=== PATIENT | female | born 1960 ===

== ENCOUNTER 2018-10-03 06:08 | Day surgery (SDC) | payer MEDICARE ==
[2018-10-03] VITALS (10 sets, daily range): BP systolic 141–160; BP diastolic 75–86
[~2018-10-03] VITALS: Ht 167.6 cm; Wt 77.1 kg
[~2018-10-03 06:08] MED LIST: AMLODIPINE BESYL5 MG ORAL; LISINOPRIL10 MG ORAL
[2018-10-03] MEDS ORDERED: TESTOSTERO100 MG/1 M IM (06:46)
[2018-10-03] MEDS ORDERED: ceFAZolin sod 2 GM in NS 55 ML IVPB ONE (07:00)
[2018-10-03] MEDS ORDERED: Lidocaine 1% 10mg/ml/Epi 0.005mg/ml 30ml vial INJ ONE (07:09)
[2018-10-03] MEDS ORDERED: Propofol 200mg/20ml IV ONE (07:09)
[2018-10-03] MEDS ORDERED: fentaNYL 100 mcg/2 mL IV ONE ×2 (07:09→08:53)
[2018-10-03] MEDS ORDERED: Bacitracin Oint 15gm Tube TOPIC ONE (07:09)
[2018-10-03] MEDS ORDERED: Midazolam 2mg/2ml Inj ONE (07:09)
[2018-10-03] MEDS ORDERED: Bupivacaine 0.5% Inj 30 ml vial INJ ONE (07:09)
[2018-10-03] MEDS ORDERED: Muri-Lube ONE (07:09)
[2018-10-03] MEDS ORDERED: Lidocaine 1% MPF 10mg/ml 5ml ONE ×2 (07:09→07:10)
--- NOTE | 2018-10-03 07:22 | Pre-Procedure Note/Attestation ---
Pre-Procedure Note/Attestation Complete Prior to Procedure Planned Procedure: bilateral Indications for Procedure Pre-Operative Diagnosis: gender identity disorder Attestation I attest that I discussed the nature of the procedure; its benefits; risks and complications; and alternatives (and the risks and benefits of such alternatives ), prior to the procedure, with the patient (or the patient's legal digital sales representative). I attest that, if there was a reasonable possibility of needing a blood transfusion, the patient (or the patient's legal digital sales representative) was given the [facility] standardized written summary, pursuant to the [place] Blood Safety Act ([place] Health and Safety Code # 1645, as amended). I attest that I re-evaluated the patient just prior to the surgery and that there has been no change in the patient's H&P, except as documented below: Silvestre Crabtree MD Oct 03, 2018 07:22
--- NOTE | 2018-10-03 07:26 | Anethesia Preoperative Eval ---
Anesthesia Pre-op PMH/ROS General Date of Evaluation: Oct 03, 2018 Time of Evaluation: 07:33 Anesthesiologist: Tiffani Moreira CRNA ASA Score: ASA 2 Mallampati Score Class I : Soft palate, uvula, fauces, pillars visible Class II: Soft palate, uvula, fauces visible Class III: Soft palate, base of uvula visible Class IV: Only hard plate visible Mallampati Classification: Class III Surgeon: Leyda Diagnosis: Gender Identity Disorder Surgical Procedure: (B) mastectomy with nipple graft Anesthesia History: none Family History: no anesthesia problems Allergies: Coded Allergies: No Known Allergies (Unverified , 09/30/18) Medications: see eMAR Patient NPO?: Yes NPO Date: Oct 03, 2018 NPO Time: 00:00 Past Medical History Cardiovascular: Reports: HTN; Denies: CAD, [place], valve dz, arrhythmia, other Pulmonary: Denies: asthma, COPD, LUDMILA, other Gastrointestinal/Genitourinary: Reports: other - 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 Exam Physician Exam Last Vital Signs Date Time Temp Pulse Resp B/P (MAP) Pulse Ox O2 Delivery O2 Flow Rate FiO2 10/03/18 07:00 97.7 78 20 141/81 98 Room Air Constitutional: NAD Neurologic: CN 2-12 intact Cardiovascular: RRR Respiratory: CTA Gastrointestinal: S/NT/ND Airway Exam Mallampati Score: Class III MO: full Neck: no issues TMD: 2-3 FB ROM: full Teeth: missing Dentures: lower; no upper Anesthesia Pre-op A/P Labs in chart, reviewed Risk Assessment & Plan Assessment: ASA 2, ok to proceed Plan: GETA Status Change Before Surgery: No Pre-Antibiotics Drug: Tiffani Otto CRNA Oct 03, 2018 07:26
[2018-10-03] MEDS ORDERED: LR 1000ml ONE (07:30)
[2018-10-03] MEDS ORDERED: NS Irrig 1000ml ONE (07:30)
[2018-10-03] MEDS ORDERED: Sterile Water Irrig 1000ml IRRIG ONE (07:30)
[2018-10-03] MEDS ORDERED: Succinylcholine 20mg/ml 10ml vial ONE (07:47)
[2018-10-03] MEDS ORDERED: Zemuron 50mg/5ml Inj IV ONE (07:47)
[2018-10-03] MEDS ORDERED: Dyna-Hex 2% Top Sol 2oz TOPIC ONE (08:01)
[2018-10-03] MEDS ORDERED: Ketorolac 30mg Inj ONE (08:24)
[2018-10-03] MEDS ORDERED: Dexamethasone 4mg/ml vial ONE (08:24)
[2018-10-03] MEDS ORDERED: Labetalol 5mg/ml 20ml vial IV ONE (08:24)
[2018-10-03] MEDS ORDERED: Neostigmine 1mg/ml 10ml Inj ONE (09:37)
[2018-10-03] MEDS ORDERED: Glycopyrrolate 0.2mg/ml 1ml Vial ONE (09:37)
--- NOTE | 2018-10-03 11:45 | Operative Note - PDOC ---
Operative Note Operative Note Date of Operation/Procedure: Oct 03, 2018 Pre-op Diagnosis: gender identity disorder Procedure: bilateral mastectomy, bilateral nipple areola reconstruction Post-op Diagnosis: same as pre-op Surgeon: Leyda Anesthesia: general Specimen: yes - 1) right breast, 2) left breast Complications: none Condition: stable Estimated Blood Loss: minimal Drains: LÁZARO - x2 Implant(s) used?: No Silvestre Crabtree MD Oct 03, 2018 11:45
--- NOTE | 2018-10-03 11:46 | Discharge Instructions ---
Discharge Instructions Discharge Instructions Follow up with: Dr. Crabtree Oct 08 Diet: regular Resume Normal Activity?: Yes Activity: ambulate For Surgical Patients Dressing Care: keep dry and clean May shower: No - sponge bathe only For Congestive Heart Failure Reminder Report to your physician any weight gain of 5 pounds or more in one week. Silvestre Crabtree MD Oct 03, 2018 11:46
[2018-10-03] MEDS ORDERED: Tylenol #3 tab (300mg/30mg) ORAL PRN (12:00)
[2018-10-03] MEDS ORDERED: HYDROmorphone 1mg/ml Carpuject SUBQ PRN (12:00)
[2018-10-03] MEDS ORDERED: D5 1/2NS 1,000 ML IV SCH (12:00)
[2018-10-03] MEDS ORDERED: Norco 5mg/325mg tab ORAL PRN (12:00)
--- NOTE | 2018-10-03 12:06 | Immediate Post-Op Evaluation ---
Immediate Post-Op Evalulation Immediate Post-Op Evalulation Procedure: (B) mastectomy with nipple graft Date of Evaluation: Oct 03, 2018 Time of Evaluation: 11:50 IV Fluids: LR 2500 ml Estimated Blood Loss: 100 ml Blood Pressure Systolic: 148 Blood Pressure Diastolic: 83 Pulse Rate: 89 Respiratory Rate: 16 O2 Sat by Pulse Oximetry: 100 Temperature (Fahrenheit): 97.5 Pain Score (1-10): 2 Nausea: No Vomiting: No Complications none Patient Status: awake, reacts, patent, extubated Hydration Status: adequate Drug: cefazolin 2 gm IV Given Within 1 Hr of Incision: Yes Time Given: 08:00 Tiffani Moreira CRNA Oct 03, 2018 12:06
[2018-10-03] MEDS ORDERED: Metoclopramide 10mg/2ml Inj IVP PRN (12:15)
--- NOTE | 2018-10-03 12:26 | 48 Hour Post Anesthesia Eval ---
Post Anesthesia Evaluation Procedure: (B) mastectomy with nipple graft Date of Evaluation: Oct 03, 2018 Time of Evaluation: 12:24 Blood Pressure Systolic: 154 0: 81 Pulse Rate: 75 Respiratory Rate: 14 Temperature (Fahrenheit): 97.5 O2 Sat by Pulse Oximetry: 97 Airway: patent Nausea: No Vomiting: No Pain Intensity: 2 Hydration Status: adequate Cardiopulmonary Status: stable Follow-up Care/Observations: per plastic surgery Post-Anesthesia Complications: none noted Follow-up care needed: ready to discharge Tiffani Moreira CRNA Oct 03, 2018 12:26
--- NOTE | 2018-10-04 00:42 | Operative Note - Dictated ---
DATE OF OPERATION: 10/03/2018 PREOPERATIVE DIAGNOSIS: Gender identity disorder. POSTOPERATIVE DIAGNOSIS: Gender identity disorder. PROCEDURES: 1. Bilateral mastectomy. 2. Bilateral nipple-areolar reconstruction. 3. Bilateral extended lipectomy of axilla. SURGEON: Silvestre Crabtree M.D. ANESTHESIA: General. ESTIMATED BLOOD LOSS: Minimal. SPECIMEN: 1. Right breast. 2. Left breast. DRAINS: A 15-Croatian Gaetano x2. COMPLICATIONS: None. CONDITION: To recovery room stable. INDICATION FOR PROCEDURE: This is a very pleasant 58-year-old trans-male, who desires top surgery mastectomy as part of his transition. He has the appropriate letter of recommendation from his mental health therapist and meets all WPATH criteria for top surgery. I have discussed the risks, benefits, and alternatives to the procedure with him including, but not limited to, bleeding, infection, scarring, nerve injury, asymmetry, contour deformity, hematoma, seroma, loss of nipple sensation, loss of nipple graft and need for additional surgery including revisions. I discussed the orientation of the incision and the unpredictable nature of scarring. No guarantees were made regarding the outcome. All of his questions have been answered to the best of my ability. He verbalized understanding with everything that we discussed and wishes to proceed. DESCRIPTION OF PROCEDURE: The patient was identified in the preoperative holding area and marked in the standing position. He was then brought to the operating room where he was placed in the supine position on the operating room table with his arms extended on arm boards. All bony prominences were adequately padded. Sequential compression devices were placed and intravenous antibiotics were administered. After induction of anesthesia, the patient's chest was prepped and draped in sterile fashion. Starting on the left breast first, the nipple-areolar complex was placed on manual stretch and a [place] measuring 2.5 cm in diameter was drawn out centered to the nipple. Next, the subdermal plane within these markings was infiltrated with 3 mL of 1% lidocaine with epinephrine. Next, I proceeded to make an incision on the areolar marking using a 15 blade scalpel. I then harvested a full-thickness nipple-areola graft. The graft was subsequently defatted, wrapped in wet gauze and placed on the back table. I then made inframammary fold incision using a 10 blade scalpel and dissected down to the level of the pectoralis major fascia. After this was done, I made the superior breast incision with a 10 blade scalpel and dissected down to the level of Hudson's fascia. Allis clamps were used to retract the skin and a plane of dissection was created between the subcutaneous tissue and breast parenchyma heading in a superior direction toward the level of the clavicle. Afterwards, the breast parenchyma was elevated off of the pectoralis major fascia proceeding from a medial to lateral direction. The specimen was passed off the table. Hemostasis was achieved and the wound was irrigated with saline. A 15-Croatian Gaetano drain was then placed within the wound and brought out through a separate stab incision and secured using 2-0 silk suture. Skin trenton were then used to temporarily reapproximate the skin. I shifted my attention to the contralateral side where the identical procedure was performed. The patient was then sat up on the operating room table. It appeared that he had very reasonable symmetry between the two sides of the chest. However, there was an extensive amount of adipose tissue lateral to the chest extending into the bilateral axilla. A marking pen was then used to draw out a large ellipse laterally extending to the posterior axilla on each side of the chest. Skin trenton were used to temporarily reapproximate this area and afterwards he had a much improved contour in the axillary region and a better transition between the chest and the axilla. Next, a marking pen was then used to draw out the proposed location of the new nipple-areolar complex on each side of the chest. These markings were confirmed with direct measurements to ensure symmetry. He was then placed back in the supine position. On each side of the chest the skin trenton were removed. Starting on the right chest first, I proceeded to perform a lipectomy of the excess lateral adipose tissue by first incising the elliptical markings using a 10 blade scalpel. Dissection proceeded through the subcutaneous tissues using electrocautery. Afterwards, the excess adipose tissue was elevated off the chest wall and passed off the table. Hudson's fascia layer was then reapproximated with 0 Vicryl suture followed by 3-0 PDS suture for the subdermal layer and a running 3-0 subcuticular Monocryl suture for the skin. I shifted my attention to the contralateral side where in similar fashion the lipectomy of the excess tissue was performed laterally and the skin closed in similar fashion. Afterwards, the markings corresponding to the new location of the nipple-areolar complex were incised using a 15 blade scalpel. The intervening skin was de-epithelialized. Each of the full-thickness nipple-areola grafts was brought on to the appropriate side of the table. Nipple-areola reconstruction was performed on each side of the chest by insetting the nipple-areola grafts using a running 5-0 fast absorbing suture. Next, several 2-0 silk suture ties were placed around the periphery of each nipple-areola graft. The skin graft bolster was fashioned and secured in place using the 2-0 silk suture ties. Next, 8 mL of 0.5% plain Marcaine were injected into each side of the chest for a total of 16 mL. Sterile dressings were then applied. The patient tolerated the procedure well and was sent to the recovery room in stable condition. All instrument, sharp, and sponge counts were correct at the conclusion of the case. Silvestre Crabtree M.D. DR: HERMINIO JOB#: [id number] CC: MIKE
== END 2018-10-03 15:35 | disposition home or self-care (01) ==
LOC: SUR 06:08 → EDBD 07:30 → SUR 15:35
DX: F64.9 Gender identity disorder, unspecified (principal); I10 Essential (primary) hypertension; F32.9 Major depressive disorder, single episode, unspecified; F41.9 Anxiety disorder, unspecified; Z90.5 Acquired absence of kidney; Z79.52 Long term (current) use of systemic steroids
CPT/HCPCS: 15200; 15839; 19303; J0330; J0690; J1100; J1885; J2250; J2405; J2704; J2710; J3010; J3490; 94003; 94150